=== PATIENT | male | born 1995 | race African-American/Black ===

== ENCOUNTER 2020-01-16 14:28 | Emergency (ER) | payer MEDICAID, SELFPAY | END 2020-01-16 15:11 | disposition home or self-care (01) | LOC: ERS 14:28 | DX: Z20.2 Contact with and (suspected) exposure to infections with a predominantly sexual mode of transmission (principal); F17.220 Nicotine dependence, chewing tobacco, uncomplicated | CPT/HCPCS: 99281 ==

== ENCOUNTER 2020-04-02 08:17 | Emergency (ER) | payer SELFPAY ==
[2020-04-02] MEDS ORDERED: Naproxen 500 MG TAB ONE (08:34)
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
== END 2020-04-02 09:15 | disposition home or self-care (01) ==
LOC: ERS 08:17
DX: M25.512 Pain in left shoulder (principal); F17.200 Nicotine dependence, unspecified, uncomplicated; F17.220 Nicotine dependence, chewing tobacco, uncomplicated; W18.30XA Fall on same level, unspecified, initial encounter

== ENCOUNTER 2020-04-19 08:57 | Inpatient (IN) | payer OTHER ==
[2020-04-19] MEDS ORDERED: Boostrix 0.5 ML VIAL ONE (09:05)
[2020-04-19 09:13] LABS: #Basophils 0.1 thou/uL (0.0-0.2); #Eosinphils 0.1 thou/uL (0.0-0.7); #Lymphocytes 2.2 thou/uL (1.20-3.40); #Monocytes 0.5 thou/uL (0.11-0.59); #Neutrophils 5.2 thou/uL (1.40-6.50); %Basophils 1.6 % (0.0-1.0); %Eosinophils 0.7 % (0.0-10.0); %Lymphocytes 27.3 % (21.0-51.0); %Monocytes 5.7 % (0.0-10.0); %Neutrophils 64.7 % (42.0-75.0); Hemoglobin 13.9 g/dL (14.0-18.0); Mean Corpuscular HGB CONC 32.2 g/dL (32.0-36.0); Mean Corpuscular Hemoglobin 28.7 pg (27.0-31.0); Mean Corpuscular Volume 89.1 fL (78.0-98.0); Mean Platelet Volume 7.7 fL (7.4-10.4); Platelet Count 292 thou/uL (130-400); RBC Distribution Width 13.2 % (11.5-14.5); Red Blood Cell (RBC) Count 4.83 mill/uL (4.70-6.10)
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
[2020-04-19 09:34] LABS: ALT (SGPT) 36 U/L (8-55); AST (SGOT) 54 U/L (5-34); Albumin 4.4 g/dL (3.5-5.0); Alcohol 106 mg/dL (Less than 10); Alkaline Phosphatase 53 U/L (40-110); Anion Gap 15 mmol/L (10-20); BUN (Urea Nitrogen) 10 mg/dL (8.9-20.6); Bilirubin, Total 0.5 mg/dL (0.2-1.2); Calc. Creatinine Clearance 0 mL/min (70-130); Calcium 9.1 mg/dL (7.8-10.44); Carbon Dioxide 24 mmol/L (22-29); Chloride 108 mmol/L (98-107); Estimated GFR-MDRD 74; Globulin 3.1 g/dL (2.4-3.5); Glucose 108 mg/dL (70-105); Potassium 3.4 mmol/L (3.5-5.1); Protein, Total 7.5 g/dL (6.0-8.3); Sodium 144 mmol/L (136-145)
[2020-04-19] MEDS ORDERED: PROPOFOL 200 MG/20 ML VIAL ONE (09:36)
[2020-04-19] MEDS ORDERED: Ondansetron PF 4 MG/2 ML Vial ONE (09:36)
[2020-04-19] MEDS ORDERED: Ketorolac Tromethamine 30 MG/ML VIAL ONE (09:36)
[2020-04-19] MEDS ORDERED: Lidocaine 1% PF 5 ML VIAL ONE (09:36)
[2020-04-19] MEDS ORDERED: Rocuronium Bromide 10 MG/ML (10ML VIAL) ONE (09:36)
[2020-04-19] MEDS ORDERED: Succinylcholine Chloride 20 MG/ML 10 ml SYRINGE FS ONE (09:36)
[2020-04-19] MEDS ORDERED: PHENYLEPHRINE-NS 100 MCG/ML 10 ML SYRINGE ONE (09:36)
[2020-04-19] MEDS ORDERED: Glycopyrrolate 0.2 MG/ML 5 ML SYRINGE ONE (09:36)
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
[2020-04-19 10:18] LABS: CK (CPK) 536 U/L (30-200); Magnesium 1.9 mg/dL (1.6-2.6); Phosphorus 2.9 mg/dL (2.3-4.7)
[2020-04-19] MEDS ORDERED: Potassium Phosphate 30 MMOL in Sodium Chloride 0.9% 250 ML 250 ML IVPB SCH (10:30)
[2020-04-19] MEDS ORDERED: Dextrose 50% Abboject 50 ML SYRINGE SLOW IVP PRN (10:31)
[2020-04-19] MEDS ORDERED: Dextrose 5% in Water 1,000 ML IV PRN (10:31)
[2020-04-19] MEDS ORDERED: Ondansetron PF 4 MG/2 ML Vial IVP PRN ×2 (10:31→13:02)
[2020-04-19] MEDS ORDERED: traMADol HCl 50 MG TAB PO PRN (10:38)
[2020-04-19] MEDS ORDERED: Cyclobenzaprine 10 MG TAB PO PRN (10:38)
[2020-04-19] MEDS ORDERED: Sodium Chloride 0.9% 1,000 ML IV SCH (10:45)
[2020-04-19] MEDS ORDERED: Fentanyl 100 MCG/2 ML VIAL ONE ×3 (10:48→12:45)
[2020-04-19] MEDS ORDERED: Midazolam HCl 2 mg/2 ml Vial ONE (10:48)
[2020-04-19] MEDS ORDERED: Neomycin-Polymyxin 1 ML AMP ONE (10:51)
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
[2020-04-19 11:40] LABS: Bacteria/HPF None Seen HPF (None Seen); Bilirubin Negative (Negative); Blood, Urine 2+ (Negative); Clarity Clear (Clear); Glucose, Urine (Dipstick) Normal (Negative); Ketone, Urine Negative (Negative); Leukocyte Negative Leu/uL (Negative); Nitrite Negative (Negative); Protein, Urine (Dipstick) 20 mg/dL (Neg-Trace); Squamous Epithelial None Seen HPF (0-3); Urobilinogen Normal mg/dL (Less than 2); pH, Urine 6.5 (5.0-9.0)
[2020-04-19 11:42] LABS: Specific Gravity, Urine 1.045 (1.002-1.036)
[2020-04-19] MEDS ORDERED: Meperidine HCl/PF 25 MG/ML VIAL ONE (12:42)
[2020-04-19] MEDS ORDERED: Fleet Enema 133 ML BOT PR PRN (13:02)
[2020-04-19] MEDS ORDERED: Bisacodyl 10 MG SUPP PR PRN (13:02)
[2020-04-19] MEDS ORDERED: Cepastat Lozenges 1 LOZ PO PRN (13:02)
[2020-04-19] MEDS ORDERED: Ondansetron ODT 4 MG TAB PO PRN (13:02)
[2020-04-19] MEDS ORDERED: Milk Of Magnesia 30 ML UDCUP PO PRN (13:02)
[2020-04-19] MEDS ORDERED: Promethazine HCl 25 MG/ML VIAL IM PRN (13:05)
[2020-04-19] MEDS ORDERED: Promethazine HCl 25 MG/ML VIAL SLOW IVP PRN (13:05)
[2020-04-19] MEDS ORDERED: Ondansetron HCl/PF 4 MG/2 ML Vial IVP PRN (13:05)
[2020-04-19] MEDS ORDERED: HYDROcodone/Acetaminophen 10/325 mg Tablet PO PRN ×2 (13:07)
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
--- NOTE | 2020-04-19 13:25 | RAD ---
Radiograph left femur 2 views: 04/19/2020 11:42 AM HISTORY: Acute, traumatic, displaced, comminuted, open fracture of left proximal femoral shaft. COMPARISON: 04/19/2020 9:31 AM FINDINGS: A total of 5 small [id number] fluoroscopic spot images obtained with C-arm in the OR. The comminuted proximal femoral shaft fracture has been reduced, and traversed by an intramedullary n ail, with single proximal and single distal stabilization screws. Alignment is nearly anatomical. IMPRESSION: Immediately status post reduction and intramedullary nail fixation of proximal femoral shaft fracture .
[2020-04-19] MEDS ORDERED: Iopamidol-370 76% 500 ML 1 ML ONE (13:34)
[2020-04-19] MEDS: Acetaminophen 500 MG TAB PO SCH ×4 (14:26→23:28)
[2020-04-19] MEDS: Gabapentin 300 MG CAP PO SCH ×2 (14:54→20:36)
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
[2020-04-19 15:17] VITALS: BMI 26.6
[2020-04-19 15:56] LABS: Bacteria/HPF None Seen HPF (None Seen); Bilirubin Negative (Negative); Blood, Urine 2+ (Negative); Clarity Clear (Clear); Glucose, Urine (Dipstick) Normal (Negative); Ketone, Urine Negative (Negative); Leukocyte Negative Leu/uL (Negative); Nitrite Negative (Negative); Protein, Urine (Dipstick) 20 mg/dL (Neg-Trace); Squamous Epithelial None Seen HPF (0-3); Urobilinogen Normal mg/dL (Less than 2); WBC/HPF 0-3 HPF (0-3)
[2020-04-19 15:57] LABS: Specific Gravity, Urine 1.046 (1.002-1.036); Urine Culture Reflex No No
[2020-04-19] MEDS: CEFAZOLIN 2 GM in Premix Bag 1 BAG IVPB SCH (16:00)
[2020-04-19 16:01] LABS: Amphetamine Not Detected (NotDetected); Barbiturates Screen Not Detected (NotDetected); Benzodiazepine Screen Not Detected (NotDetected); Cocaine Metabolite Screen Not Detected (NotDetected); Medtox Control Line Valid? VALID (VALID); Medtox Reader # READER 4; Methadone Not Detected (NotDetected); Methamphetamine Not Detected (NotDetected); Opiate Screen Not Detected (NotDetected); Oxycodone Screen Not Detected (NotDetected); Phencyclidine (PCP) Not Detected (NotDetected); THC/Cannabinoid Screen Not Detected (NotDetected); Tricyclic Screen Not Detected (NotDetected)
[2020-04-19 16:15] LABS: SARS-CoV-2 MS2 Positive; SARS-CoV-2 N Gene Negative; SARS-CoV-2 S Gene Negative; SARS-CoV-2 by NAA Not Detected (NotDetected); SARS-CoV-2 orf1ab Negative
--- NOTE | 2020-04-19 18:55 | OP ---
DATE OF PROCEDURE: 04/19/2020 PREOPERATIVE DIAGNOSIS: Displaced comminuted midshaft fracture, left femur, which was a grade 1 open. POSTOPERATIVE DIAGNOSIS: Displaced comminuted midshaft fracture, left femur, which was a grade 1 open. PROCEDURES PERFORMED: 1. Irrigation and debridement of the left thigh. 2. Interlocking intramedullary rodding of midshaft comminuted fracture of the left femur. ANESTHESIA: General. DESCRIPTION OF PROCEDURE: The patient was given preoperative IV antibiotics, taken to the operating room, placed in a supine position. Satisfactory general anesthesia was performed. The patient was then placed on the fracture table. All bony prominences were well padded. Traction was applied to well-padded left foot and ankle. C-arm verified the comminuted fracture of the midshaft of the femur. The fracture could be reduced; therefore, the left hip and thigh were sterilely prepped and draped in usual fashion. A longitudinal incision was made proximal to the greater trochanter, approximately 2.5 inches and under fluoroscopic visualization, a guide pin was placed through the greater trochanter and into the proximal aspect of the femur, it was over-reamed, and then a guide pin was placed through the proximal aspect of the femur crossing the fracture into the distal aspect of the femur. The appropriate length yudith was measured to be 360 mm. The femoral shaft was then sequentially reamed up to 13.5 mm with good cortical chatter. A [employer] interlocking femoral nail that was 12 mm in diameter and 360 mm in length was inserted over the guidewire, crossing the fracture. The yudith was placed down to the appropriate position on the greater trochanter and using the guide system attached to the proximal femoral nail. A 5.0 locking screw was placed into the proximal aspect of the femur line and into the yudith at the lesser trochanteric level under fluoroscopic visualization. Another 5.0 locking screw was placed from anterior to posterior in the distal aspect of the femur and in the yudith. This was all again documented and confirmed with the C-arm. The wounds were then irrigated again. They were closed using #1 Vicryl for the iliotibial band and fatty layer and skin was closed with skin arik. Sterile dressing was applied. The patient was taken off the fracture table. He was awakened, extubated, and transferred to recovery room in stable condition. ESTIMATED BLOOD LOSS: 400 mL. COMPLICATIONS: None. Job ID: [id number]
[2020-04-19] MEDS: Aspirin 325 MG TAB PO SCH (20:36)
[2020-04-19] MEDS: Senokot S 8.6-50 MG TAB PO SCH (20:36)
[2020-04-19] MEDS: Famotidine 20 MG TAB PO SCH (20:36)
[2020-04-19] MEDS ORDERED: Senokot S 8.6-50 MG TAB PO SCH (21:00)
[2020-04-20] MEDS: CEFAZOLIN 2 GM in Premix Bag 1 BAG IVPB SCH (00:46)
--- NOTE | 2020-04-20 01:42 | PRG ---
DATE OF SERVICE: 04/19/2020 SUBJECTIVE: The patient was seen during evening rounds resting comfortably, in no distress. The patient is postop day 0, status post irrigation and debridement of his left thigh and interlocking intramedullary rodding of the mid shaft comminuted fracture of the left femur. The patient's pain has been well controlled. OBJECTIVE: VITAL SIGNS: Stable and the patient is afebrile. GENERAL: Urinary output is adequate for age and weight. PLAN: Unchanged. Continue pain regimen and supportive care. Physical and occupational therapy. Regular diet as tolerated. Job ID: [id number]
[2020-04-20] MEDS: Acetaminophen 500 MG TAB PO SCH ×4 (05:09→22:04)
[2020-04-20 05:45] LABS: Hemoglobin 10.5 g/dL (14.0-18.0); Mean Corpuscular HGB CONC 32.7 g/dL (32.0-36.0); Mean Corpuscular Hemoglobin 29.3 pg (27.0-31.0); Mean Corpuscular Volume 89.7 fL (78.0-98.0); Mean Platelet Volume 7.8 fL (7.4-10.4); Platelet Count 233 thou/uL (130-400); RBC Distribution Width 12.9 % (11.5-14.5); Red Blood Cell (RBC) Count 3.57 mill/uL (4.70-6.10); White Blood Cell (WBC) Count 7.1 thou/uL (4.8-10.8)
[2020-04-20 05:57] LABS: Anion Gap 11 mmol/L (10-20); BUN (Urea Nitrogen) 14 mg/dL (8.9-20.6); Calc. Creatinine Clearance 115 mL/min (70-130); Carbon Dioxide 27 mmol/L (22-29); Chloride 103 mmol/L (98-107); Estimated GFR-MDRD Greater than 90; Glucose 84 mg/dL (70-105); Magnesium 1.5 mg/dL (1.6-2.6); Potassium 3.7 mmol/L (3.5-5.1); Sodium 137 mmol/L (136-145)
[2020-04-20 06:08] LABS: Phosphorus 3.7 mg/dL (2.3-4.7)
[2020-04-20] MEDS ORDERED: PHOS-NAK 1 PKT PACK PO SCH (07:45)
[2020-04-20] MEDS: Polyethylene Glycol 3350 17 GM Packet PO SCH (08:22)
[2020-04-20] MEDS: Senokot S 8.6-50 MG TAB PO SCH ×2 (08:23→22:04)
[2020-04-20] MEDS: Ferrous Gluconate 324 MG TAB PO SCH ×2 (08:24→16:28)
[2020-04-20] MEDS: Famotidine 20 MG TAB PO SCH ×2 (08:24→22:04)
[2020-04-20] MEDS: Aspirin 325 MG TAB PO SCH ×2 (08:24→22:04)
[2020-04-20] MEDS: Multivitamin W/ Minerals 1 TAB PO SCH (08:24)
[2020-04-20] MEDS: Gabapentin 300 MG CAP PO SCH ×3 (08:24→22:04)
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
[2020-04-20] MEDS: traMADol HCl 50 MG TAB PO PRN ×3 (09:26→23:22)
[2020-04-20] MEDS: Magnesium 2 GM/50 ML 2 GM in Premix Bag 1 BAG IVPB SCH ×2 (10:23→11:36)
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
[2020-04-21] MEDS: traMADol HCl 50 MG TAB PO PRN (05:22)
[2020-04-21] MEDS: Acetaminophen 500 MG TAB PO SCH ×2 (05:22→10:04)
[2020-04-21 05:40] LABS: Mean Corpuscular HGB CONC 32.1 g/dL (32.0-36.0); Mean Corpuscular Volume 90.2 fL (78.0-98.0); Mean Platelet Volume 7.8 fL (7.4-10.4); Platelet Count 217 thou/uL (130-400); RBC Distribution Width 12.6 % (11.5-14.5); Red Blood Cell (RBC) Count 3.09 mill/uL (4.70-6.10); White Blood Cell (WBC) Count 6.2 thou/uL (4.8-10.8)
[2020-04-21 06:07] LABS: Phosphorus 3.6 mg/dL (2.3-4.7)
[2020-04-21 06:09] LABS: Anion Gap 9 mmol/L (10-20); BUN (Urea Nitrogen) 10 mg/dL (8.9-20.6); Calc. Creatinine Clearance 126 mL/min (70-130); Carbon Dioxide 30 mmol/L (22-29); Chloride 102 mmol/L (98-107); Estimated GFR-MDRD Greater than 90; Glucose 94 mg/dL (70-105); Magnesium 2.2 mg/dL (1.6-2.6); Potassium 3.9 mmol/L (3.5-5.1); Sodium 137 mmol/L (136-145)
[2020-04-21] MEDS: Senokot S 8.6-50 MG TAB PO SCH (08:22)
[2020-04-21] MEDS: Ferrous Gluconate 324 MG TAB PO SCH (08:23)
[2020-04-21] MEDS: Gabapentin 300 MG CAP PO SCH (08:24)
[2020-04-21] MEDS: Multivitamin W/ Minerals 1 TAB PO SCH (08:24)
[2020-04-21] MEDS: Polyethylene Glycol 3350 17 GM Packet PO SCH (08:24)
[2020-04-21] MEDS: Aspirin 325 MG TAB PO SCH (08:24)
[2020-04-21 11:50] VITALS: BP 142/95; TEMP 97.6
--- NOTE | 2020-04-21 14:46 | PRG ---
DATE OF SERVICE: 04/21/2020 SUBJECTIVE: Mr. Hall is 2 days status post interlocking intramedullary rodding of the left femur fracture. The patient is doing well with physical therapy. He is able to independently get out of bed and ambulate with crutches. He states he has good pain control. OBJECTIVE: VITAL SIGNS: The patient has been afebrile. Blood pressure 128/76, pulse 91, respiratory rate 16, O2 saturation 99% on room air. LABORATORY DATA: This morning, white count 6.2, hemoglobin 9, hematocrit 27.9. The left thigh has normal amount of swelling. The left lower extremity is neurovascularly intact. PLAN: The patient is safe for discharge today. He will follow up in my office in 2 weeks. Job ID: [id number]
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
== END 2020-04-21 12:40 | disposition home or self-care (01) | DRG 956 ==
LOC: ERS 08:57 → SDC 11:48 → SURG A 11:48
PROVIDERS: ADMIT Orthopaedic Surgery; ATTEND Orthopaedic Surgery
PROC: 0QH936Z Insertion of Intramedullary Internal Fixation Device into Left Femoral Shaft, Percutaneous Approach (ICD-10-PCS; principal; 2020-04-19)
DX: S72.352B Displaced comminuted fracture of shaft of left femur, initial encounter for open fracture type I or II (principal); S27.321A Contusion of lung, unilateral, initial encounter; S22.011A Stable burst fracture of first thoracic vertebra, initial encounter for closed fracture; S27.0XXA Traumatic pneumothorax, initial encounter; N17.9 Acute kidney failure, unspecified; F17.210 Nicotine dependence, cigarettes, uncomplicated; Z20.828 Contact with and (suspected) exposure to other viral communicable diseases; E87.6 Hypokalemia; F10.129 Alcohol abuse with intoxication, unspecified; Y90.5 Blood alcohol level of 100-119 mg/100 ml; V89.2XXA Person injured in unspecified motor-vehicle accident, traffic, initial encounter
CPT/HCPCS: 36415; 51702; 70450; 71045; 71260; 72125; 72170; 74177; 76000; 80048; 80053; 80306; 80307; 81003; 81015; 82550; 83605; 83735; 84100; 85025; 85027; 87635; 90471; 90715; 96361; 96365; C1713; G0390; J0690; J1885; J2175; J2250; J2405; J2704; J3010; J3475; J7050; Q9967; U0003